=== PATIENT | female | born 1955 | race African-American/Black ===

== ENCOUNTER 2023-10-25 09:28 | Emergency (ER) | payer MEDICAID ==
[~2023-10-25] VITALS: Ht 165.1 cm; Wt 97.4 kg
[2023-10-25 10:07] VITALS: BP 122/74; PULSE 84; RESP 18; TEMP 97.4; O2SAT 98
[2023-10-25 10:30] LABS: Urine Amorphous Crystal FEW /hpf (None Seen); Urine Bacteria FEW /hpf (None Seen); Urine Blood TRACE /uL (Negative); Urine Clarity Clear (Clear); Urine Color Yellow (Yellow); Urine Mucus FEW (None Seen); Urine Protein, UAD TRACE (Negative); Urine Specific Gravity 1.021 (1.001-1.035); Urine Urobilinogen Normal (Negative); Urine WBC 14 /hpf (0 - 5)
[2023-10-25] MEDS ORDERED: PROM1SOL4 PO (10:45)
== END 2023-10-25 10:51 | disposition home or self-care (01) ==
LOC: ER 09:28
DX: J40 Bronchitis, not specified as acute or chronic (principal); R07.89 Other chest pain; E11.9 Type 2 diabetes mellitus without complications; Z90.710 Acquired absence of both cervix and uterus; Z90.89 Acquired absence of other organs
CPT/HCPCS: 71046; 81001